=== PATIENT | female | born 1965 | race Caucasian/White ===

== ENCOUNTER 2017-11-06 09:34 | Inpatient (IN) | payer OTHER ==
[~2017-11-06] VITALS: Ht 160 cm; Wt 78.0 kg
[2017-11-20] MEDS ORDERED: LOSARTAN-HCTZ1 EACH PO (13:15)
[2017-11-20] MEDS ORDERED: GABAPENTIN600 MG PO (13:15)
[2017-11-20] MEDS ORDERED: PROTONIX40 MG PO (13:16)
[2017-11-20] MEDS ORDERED: [UNRECOGNIZED DRUG - OTHER] PO (13:16)
[2017-12-01] MEDS ORDERED: OMEPRAZOLE20 M1 PO (11:26)
[2017-12-01] MEDS ORDERED: INTESTINEX680 M1 PO (11:26)
[2017-12-01] MEDS ORDERED: PERCOCET 5-3251 EACH PO (11:26)
== END 2017-12-01 13:39 | disposition home or self-care (01) | DRG 331 ==
LOC: O/R 11-28 08:34 → SURH 11-28 11:45 → SURG 11-28 16:11
PROVIDERS: Surgery
PROC: 0DJD8ZZ Inspection of Lower Intestinal Tract, Via Natural or Artificial Opening Endoscopic (ICD-10-PCS; 2017-11-28)
PROC: 0DTE4ZZ Resection of Large Intestine, Percutaneous Endoscopic Approach (ICD-10-PCS; principal; 2017-11-28 11:45)
DX: K57.32 Diverticulitis of large intestine without perforation or abscess without bleeding (principal)

== ENCOUNTER 2019-02-15 08:36 | Day surgery (SDC) | payer OTHER ==
[~2019-02-15 08:36] MED LIST: GABAPENTIN600 MG PO; INTESTINEX680 M1 PO; LOSARTAN-HCTZ1 EACH PO; OMEPRAZOLE20 M1 PO; PERCOCET 5-3251 EACH PO; PROTONIX40 MG PO; [UNRECOGNIZED DRUG - OTHER] PO
== END 2019-02-15 13:55 | disposition home or self-care (01) ==
LOC: AMB-ENDOS 08:36
DX: K57.32 Diverticulitis of large intestine without perforation or abscess without bleeding (principal)